=== PATIENT | female | born 1945 | race Caucasian/White ===

== ENCOUNTER 2022-03-02 04:14 | Day surgery (SDC) | payer OTHER, MEDICARE ==
[2022-02-26 12:30] VITALS: BMI 34.2
[2022-03-02] MEDS ORDERED: BUPIVACAINE HCL/PF 0.5% (5MG/ML) 10 ML VIAL ONE (07:33)
[2022-03-02] MEDS ORDERED: ePHEDrine SULFATE 50 MG/1 ML AMPULE ONE (08:05)
[2022-03-02] MEDS ORDERED: MIDAZOLAM HCL 2 MG/2 ML SINGLE DOSE VIAL ONE (08:05)
[2022-03-02] MEDS ORDERED: PROPOFOL 20 ML ONE ×2 (08:05→08:06)
[2022-03-02] MEDS ORDERED: ceFAZolin SODIUM 1 GM VIAL IVPB ONE (08:30)
[2022-03-02] MEDS ORDERED: BUPIVACAINE HCL/PF 0.5% (5MG/ML) 10 ML VIAL IJ ONE (08:55)
[2022-03-02] MEDS ORDERED: oxyCODONE HCL 5 MG TABLET PO PRN (09:22)
[2022-03-02] MEDS ORDERED: ONDANSETRON 4 MG/2 ML VIAL IVPUSH PRN (09:22)
[2022-03-02] MEDS ORDERED: LACTATED RINGERS SOLUTION 1,000 ML IV SCH (09:30)
[2022-03-02] MEDS ORDERED: PROMETHAZINE HCL 25 MG/1 ML VIAL ONE (10:40)
[2022-03-02] MEDS ORDERED: PROMETHAZINE HCL 25 MG/1 ML VIAL IVPUSH PRN (11:31)
[2022-03-02] MEDS ORDERED: PROMETHAZINE HCL 25 MG/1 ML VIAL IVPB PRN (11:50)
[2022-03-02 12:32] VITALS: TEMP 97.3
[2022-03-02 14:37] VITALS: BP 116/66; PULSE 96
== END 2022-03-02 14:41 | disposition home or self-care (01) ==
LOC: JASU-SURG 04:14
PROVIDERS: ATTEND Orthopaedic Surgery
PROC: 0SBD4ZZ Excision of Left Knee Joint, Percutaneous Endoscopic Approach (ICD-10-PCS; 2022-03-02)
PROC: 0SBD4ZZ Excision of Left Knee Joint, Percutaneous Endoscopic Approach (ICD-10-PCS; principal; 2022-03-02 09:00)
DX: S83.282A Other tear of lateral meniscus, current injury, left knee, initial encounter (principal); S83.242A Other tear of medial meniscus, current injury, left knee, initial encounter; M25.562 Pain in left knee; M17.12 Unilateral primary osteoarthritis, left knee; X58.XXXA Exposure to other specified factors, initial encounter; Y93.9 Activity, unspecified; Y92.9 Unspecified place or not applicable
CPT/HCPCS: 82962; 94760

== ENCOUNTER 2023-12-10 03:56 | Day surgery (SDC) | payer OTHER, MEDICARE ==
[2023-12-06 13:40] VITALS: BMI 34.2
[2023-12-10] MEDS ORDERED: BUPIVACAINE HCL/PF 0.5% (5MG/ML) 10 ML VIAL ONE (07:22)
[2023-12-10] MEDS ORDERED: LIDOCAINE HCL/PF 1% SDV 5ML VIAL ONE (07:22)
[2023-12-10] MEDS ORDERED: ACETAMINOPHEN 500 MG TABLET (FP) PO PRN (09:21)
[2023-12-10] MEDS: LIDOCAINE 1% P/F 10 MG/ML VIAL INF ONE ×2 (10:07)
[2023-12-10] MEDS: IOHEXOL 180 MG/1 ML ML IJ ONE ×2 (10:10)
[2023-12-10] MEDS: DEXAMETHASONE SOD PHOSPHATE 10 MG/1 ML VIAL IVPUSH ONE ×2 (10:10)
[2023-12-10 10:26] VITALS: BP 136/55; PULSE 83; RESP 18; TEMP 98.5
== END 2023-12-10 10:30 | disposition home or self-care (01) ==
LOC: JASU-SURG 03:56
PROVIDERS: ATTEND Pain Medicine Pain Medicine
PROC: 3E0R3BZ Introduction of Anesthetic Agent into Spinal Canal, Percutaneous Approach (ICD-10-PCS; 2023-12-10)
PROC: 3E0R33Z Introduction of Anti-inflammatory into Spinal Canal, Percutaneous Approach (ICD-10-PCS; principal; 2023-12-10 11:15)
DX: M54.12 Radiculopathy, cervical region (principal)
CPT/HCPCS: 76000-TC-FY; J1100